=== PATIENT | female | born 1985 | race Caucasian/White ===

== ENCOUNTER 2017-12-14 16:40 | Emergency (ER) | payer MEDICAID ==
[~2017-12-14] VITALS: Ht 160 cm; Wt 75.4 kg
[2017-12-14 16:58] VITALS: Ht 160 cm; Wt 75.4 kg
[2017-12-14 19:34] VITALS: BP 119/83
== END 2017-12-14 19:34 | disposition home or self-care (01) ==
LOC: ED 16:40
DX: M79.672 Pain in left foot (principal); E07.9 Disorder of thyroid, unspecified
CPT/HCPCS: J1885